=== PATIENT | male | born 1945 | race Caucasian/White ===

== ENCOUNTER 2017-12-25 21:29 | Emergency (ER) | payer OTHER ==
[~2017-12-25] VITALS: Ht 177.8 cm; Wt 77.1 kg
[2017-12-25] MEDS ORDERED: TIAZAC120 M1 (21:45)
[2017-12-25] MEDS ORDERED: ZOLOFT100 MG (21:45)
[2017-12-25] MEDS ORDERED: COZAAR25 MG (21:45)
[2017-12-25] MEDS ORDERED: WELLBUTRIN XL300 MG (21:46)
[2017-12-25] MEDS ORDERED: RYTARY ER 61.21 EACH (21:46)
[2017-12-25] MEDS ORDERED: CRESTOR10 MG (21:46)
[2017-12-25] MEDS ORDERED: ARICEPT10 MG (21:46)
[2017-12-25] MEDS ORDERED: ASA81 MG (21:47)
[2017-12-26] MEDS ORDERED: CEFUROXIME500 MG PO (00:43)
[2017-12-26] MEDS ORDERED: NABUMETONE750 MG PO (00:43)
== END 2017-12-26 00:56 | disposition home or self-care (01) ==
LOC: ER 21:29
DX: S01.121A Laceration with foreign body of right eyelid and periocular area, initial encounter (principal); S01.02XA Laceration with foreign body of scalp, initial encounter; W26.8XXA Contact with other sharp object(s), not elsewhere classified, initial encounter; Y93.01 Activity, walking, marching and hiking; Y92.018 Other place in single-family (private) house as the place of occurrence of the external cause; Y99.8 Other external cause status

== ENCOUNTER → 2018-01-05 | Emergency (ER) | payer OTHER ==
[~2018-01-05] VITALS: Ht 177.8 cm; Wt 72.6 kg
[~2018-01-05] MED LIST: ARICEPT10 MG; ASA81 MG; CEFUROXIME500 MG PO; COZAAR25 MG; CRESTOR10 MG; NABUMETONE750 MG PO; RYTARY ER 61.21 EACH; TIAZAC120 M1; WELLBUTRIN XL300 MG; ZOLOFT100 MG
== END | disposition left against medical advice (07) ==
LOC: ER 09:40
DX: Z53.20 Procedure and treatment not carried out because of patient's decision for unspecified reasons (principal)

== ENCOUNTER 2018-01-31 14:35 | Emergency (ER) | payer OTHER ==
[~2018-01-31] VITALS: Ht 177.8 cm; Wt 73.0 kg
== END 2018-01-31 18:20 | disposition home or self-care (01) ==
LOC: ER 14:35
DX: S01.111A Laceration without foreign body of right eyelid and periocular area, initial encounter (principal); W18.39XA Other fall on same level, initial encounter; Y93.89 Activity, other specified; Y92.098 Other place in other non-institutional residence as the place of occurrence of the external cause; Y99.8 Other external cause status

== ENCOUNTER → 2019-10-02 16:36 | Outpatient (CLI) | payer OTHER | END | disposition home or self-care (01) | LOC: LAB 16:36 | DX: N39.0 Urinary tract infection, site not specified (principal) ==